=== PATIENT | female | born 1975 | race Caucasian/White ===

== ENCOUNTER 2018-12-21 11:34 | Outpatient (CLI) | payer BC ==
[~2018-12-21 11:34] MED LIST: 0.9 % SODIUM CHLORIDE PF 10 ML VIAL IJ ONE; BUPIVACAINE HCL 0.5% (5MG/ML) PF 10ML VIAL IV ONE; DEXAMETHASONE SODIUM PHOSPHATE 10 MG/ML VIAL ONE; IOHEXOL 240 MG/ML BOTTLE 50 ML ONE; Lidocaine 1% 5ml 10 MG/ML VIAL ONE; TRIAMCINOLONE ACETONID 40MG/ML VIAL ONE
== END 2018-12-21 13:44 | disposition home or self-care (01) ==
LOC: OUT 11:34
PROVIDERS: ATTEND Physical Medicine & Rehabilitation
DX: M54.12 Radiculopathy, cervical region (principal); M25.511 Pain in right shoulder; M48.02 Spinal stenosis, cervical region; M54.2 Cervicalgia
CPT/HCPCS: 62321; J3301; J3490

== ENCOUNTER 2019-02-01 12:42 | Outpatient (CLI) | payer BC ==
[~2019-02-01 12:42] MED LIST changes: -BUPIVACAINE HCL 0.5% (5MG/ML) PF 10ML VIAL IV ONE
== END 2019-02-01 14:42 | disposition home or self-care (01) ==
LOC: OUT 12:42
PROVIDERS: ATTEND Physical Medicine & Rehabilitation
DX: M48.02 Spinal stenosis, cervical region (principal); M54.12 Radiculopathy, cervical region; M54.2 Cervicalgia; M25.511 Pain in right shoulder
CPT/HCPCS: 20605; 20610; 62321; J3301